=== PATIENT | male | born 1990 | race Caucasian/White ===

== ENCOUNTER 2017-06-08 21:26 | Emergency (ER) | payer BC ==
[2017-06-08 21:40] VITALS: RESP 18; TEMP 97.7
[2017-06-08] MEDS ORDERED: APAP/HYDROCODONE 325/5 TAB PO ONE (22:24)
[2017-06-08] MEDS ORDERED: APAP/HYDROCODONE 325/5 TAB ONE (22:26)
[2017-06-08 22:45] VITALS: BP 132/86; PULSE 78; O2SAT 98
== END 2017-06-08 22:35 | disposition home or self-care (01) ==
LOC: ED 21:26
DX: S92.101A Unspecified fracture of right talus, initial encounter for closed fracture (principal); V18.0XXA Pedal cycle driver injured in noncollision transport accident in nontraffic accident, initial encounter
CPT/HCPCS: 29515; 73610; 73620; 99284

== ENCOUNTER 2017-06-12 12:04 | Outpatient (CLI) | payer BC ==
[2017-06-08 22:45] VITALS: O2SAT 98
== END 2017-06-12 12:05 | disposition home or self-care (01) ==
LOC: CONVCARE 12:04
PROVIDERS: ATTEND Orthopaedic Surgery
DX: S92.121A Displaced fracture of body of right talus, initial encounter for closed fracture (principal); S92.111A Displaced fracture of neck of right talus, initial encounter for closed fracture; S92.141A Displaced dome fracture of right talus, initial encounter for closed fracture; V86.59XA Driver of other special all-terrain or other off-road motor vehicle injured in nontraffic accident, initial encounter
CPT/HCPCS: 73700

== ENCOUNTER 2017-07-03 07:57 | Outpatient (CLI) | payer BC ==
[2017-06-08 22:45] VITALS: O2SAT 98
== END 2017-07-03 07:58 | disposition home or self-care (01) ==
LOC: CONVCARE 07:57
PROVIDERS: ATTEND Orthopaedic Surgery
DX: S92.111D Displaced fracture of neck of right talus, subsequent encounter for fracture with routine healing (principal); Z91.19 Patient's noncompliance with other medical treatment and regimen
CPT/HCPCS: 73610

== ENCOUNTER 2017-07-24 07:49 | Outpatient (CLI) | payer BC ==
[2017-06-08 22:45] VITALS: O2SAT 98
== END 2017-07-24 07:50 | disposition home or self-care (01) ==
LOC: CONVCARE 07:49
PROVIDERS: ATTEND Orthopaedic Surgery
DX: S92.191D Other fracture of right talus, subsequent encounter for fracture with routine healing (principal)
CPT/HCPCS: 73610; 73620

== ENCOUNTER 2017-08-15 11:47 | Outpatient (CLI) | payer BC ==
[2017-06-08 22:45] VITALS: O2SAT 98
== END 2017-08-15 11:48 | disposition home or self-care (01) ==
LOC: CONVCARE 11:47
PROVIDERS: ATTEND Orthopaedic Surgery
DX: S92.101D Unspecified fracture of right talus, subsequent encounter for fracture with routine healing (principal)
CPT/HCPCS: 73610; 73620

== ENCOUNTER 2017-09-18 07:48 | Outpatient (CLI) | payer BC ==
[2017-06-08 22:45] VITALS: O2SAT 98
== END 2017-09-18 07:49 | disposition home or self-care (01) ==
LOC: CONVCARE 07:48
PROVIDERS: ATTEND Orthopaedic Surgery
DX: S92.191D Other fracture of right talus, subsequent encounter for fracture with routine healing (principal)
CPT/HCPCS: 73620